=== PATIENT | female | born 1965 | race Caucasian/White ===

== ENCOUNTER 2024-11-19 23:15 | Emergency (ER) | payer BC, SELFPAY ==
[2024-11-19 23:18] VITALS: BP 140/94
[2024-11-19 23:47] LABS: % Basophils 0.5 % (0-2); % Eosinophils 1.9 % (0-6); % Immature Granulocytes 0.3 % (0-0.5); % Lymphocytes 38.7 % (20.5-51.1); % Monocytes 5.9 % (1.7-9.3); % Neutrophils 52.7 % (42.2-75.2); Absolute Eosinophils 0.1 10^3/uL (0-0.7); Absolute Lymphocytes 2.3 10^3/uL (1.2-3.4); Absolute Monocytes 0.4 10^3/uL (0.1-0.6); Absolute Neutrophils 3.1 10^3/uL (1.4-6.5); Hematocrit 35.1 % (37.0-47.0); Hemoglobin 11.9 g/dL (12.0-16.0); Mean Corp Hgb Conc. 33.9 g/dL (33.0-37.0); Mean Corpuscular Hgb 30.1 pg (27.0-31.0); Mean Corpuscular Volume 88.6 fL (81.0-99.0); Mean Platelet Volume 10.5 fL (7.4-10.4); Nucleated Red Blood Cells % 0 %; Platelet Count 200 10^3/uL (130-400); Red Blood Cell Count 3.96 10^6/uL (4.20-5.40); Red Cell Dist. Width 12.8 % (11.5-14.5); White Blood Cell Count 5.9 10^3/uL (4.8-10.8)
[2024-11-20 00:08] LABS: ALT (SGPT) 18 U/L (0-35); AST (SGOT) 20 U/L (14-36); Albumin 4.3 g/dl (3.5-5.0); Alkaline Phosphatase 92 U/L (38-126); Blood Urea Nitrogen 18 mg/dl (7-17); Carbon Dioxide 29 mmol/L (22-30); Chloride 102 mmol/L (98-107); Glucose 117 mg/dl (70-99); Sodium 137 mmol/L (135-145); Total Bilirubin 0.3 mg/dl (0.2-1.3); Total Protein 6.6 g/dl (6.3-8.2); eGFR > 60.00
[2024-11-20 00:44] VITALS: BMI 32.3
--- NOTE | 2024-11-20 00:46 | EDRN ---
Pt says I just don't feel good. I'm unsure if it was indigestion, I couldn't get a deep breath, maybe it was something I ate or a panic attack. It's a weird feeling, I felt it right before you walked in. I feel like I can't take a deep breath,
it's not sob. No sharp pain, a dull burning sensation, I ate a lot of almonds so I don't know if that has anything to do with this.' Pt had dry mouth and nausea earlier, feels abdominal 'discomfort' not pain. Pt burped couple times earlier. Pt
took a Tums which she does not feel helped. No cp, sob, abd pain, vomiting, fever/chills/cough, urinary symptoms, weakness, dizziness. Dinner was [place] with walnuts, banana and blueberries. Earlier pt had tea and sliced almonds.
[2024-11-20 00:56] VITALS: BP 140/95
--- NOTE | 2024-11-20 01:01 | EDRN ---
While talking with pt, she had multiple episodes stating 'There it is, that feeling again.' No change in HR, rhythm or extra beats on monitor during these episodes. Each lasted few seconds and during last one pt felt nauseous and head of bed had
to be raised.
[2024-11-20 01:18] VITALS: BP 130/69
--- NOTE | 2024-11-20 01:21 | EDRN ---
While obtaining more blood and inserting IV, pt had couple more episodes. Pt had burning in her upper abdomen and it went up the middle of her chest into her throat. Pt had nausea briefly. HR 80's NSR, no ectopy. Troponin, lipase and UA sent.
[2024-11-20 01:25] LABS: Urine Albumin Negative (Neg - Trace); Urine Bilirubin Negative (Negative); Urine Character Clear (Clear); Urine Color Yellow; Urine Glucose Negative (Negative); Urine Ketone Negative (Negative); Urine Leukocyte Negative (Negative); Urine Nitrite Negative (Negative); Urine Occult Blood Negative (Negative); Urine Specific Gravity 1.015 (<1.030); Urine Urobilinogen Negative (Neg - 1+); Urine pH 6.5 (5.0-9.0)
[2024-11-20 01:39] LABS: Lipase 217 U/L (23-300)
--- NOTE | 2024-11-20 01:47 | ED.GENMED ---
History of Present Illness
General
Chief Complaint: Abdominal Symptoms
Source: patient
Exam Limitations: none
Time Seen by Provider: 11/20/24 01:25
Nursing documentation reviewed up to this point in time: agreed with
History of Present Illness
History of Present Illness:
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 Several family members with tachycardia syndrome but patient
herself has never suffered tachycardia and has undergone unremarkable cardiac evaluation including stress test, echocardiogram, Holter monitors in the past.
Tonight around 10:30 PM while lying in bed, her dog was lying on her chest/abdomen and she developed nausea, a sense of difficulty catching her breath which she describes as difficulty taking a deep breath and a vague discomfort of her lower chest,
upper abdominal area that radiated to her neck. She denies pain or pressure but symptoms persisted, accompanied with some nausea without vomiting. She got up and walked around, took some Tums and initially no improvement but now admits that
discomfort and symptoms have resolved. She does admit that it seemed to improve but then came back sort of coming and going for a while but has since resolved.
No history of similar episodes in the past. She has not had a cough, no palpitations or a sense that her heart was beating fast but she does admit to feeling somewhat anxious, worried regarding genetic predisposition to ventricular tachycardia.
No recent travel. She denies leg pain or swelling.
She takes no medicines on a daily basis.
Past History
Past History
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 Patient has never had episode of V. tach.)
ED Past Surgical History: Appendectomy and Gynecological ( ovarian cyst)
Social History
Tobacco: Non-smoker
Alcohol: Occasional
Personal:
Living: with family
Employment: Employed
Family History
Family History: Other (Catecholamine induced ventricular tachycardia)
Phy Exam
Physical Exam
Physical Exam:
GENERAL: 59-year-old woman appears her stated age, awake and alert, pleasant, easily communicative and in no acute distress.
EYE: anicteric
NECK: Supple, nontender, no meningismus, no significant adenopathy.
ENT: oral mucosa is moist. No rhinorrhea.
CARDIAC: Regular rate and rhythm. no murmur. No chest wall tenderness.
LUNGS: Clear breath sounds bilaterally, no acute respiratory distress, no wheezes/rales/rhonchi
ABDOMEN: Soft, nondistended, without focal tenderness, no r/g, no cvat. normoactive BS.
NEUROLOGICAL: Alert and oriented x3, no focal neuro deficits. Gait is steady.
SKIN: Warm and dry, normal color, skin intact. No rash.
MUSCULOSKELETAL: No C/C/E. peripheral pulses are full and equal b/l. No palpable tenderness.
PSYCH: Normal and appropriate interaction.
Course
Orders/Labs/Results
Orders:
Orders
11/19/24 23:28
CMP [Comprehensive Metabolic Panel] Urgent
Complete Blood Count/With Diff Urgent
11/20/24 01:10
Urinalysis Reflex To Culture Urgent
Date Specimen was Collected: 11/20/24
Time Specimen was Collected: 01:08
11/20/24 01:16
Lipase Urgent
Troponin I Urgent
11/20/24 01:37
Electrocardiogram (*1) Urgent
Reason for Study: Chest Pain
EKG- Treatment ONCE
11/20/24 02:46
CR Chest - 2 Views Urgent
Comment:
Reason For Exam: SOB
11/20/24 02:47
US Abdomen Complete/Upper Urgent
Comment:
Reason For Exam: epigastric abd pain, nausea
11/20/24 03:52
Pantoprazole [Protonix IV] 40 mg IV NOW STA
Abnormal Lab Results
11/19/24
23:28
RBC 3.96 L 10^6/uL
(4.20-5.40)
Hgb 11.9 L g/dL
(12.0-16.0)
Hct 35.1 L %
(37.0-47.0)
MPV 10.5 H fL
(7.4-10.4)
BUN 18 H mg/dl
(7-17)
Glucose 117 H mg/dl
(70-99)
11/19/24 23:28
11/19/24 23:28
Vital Signs
Initial and Last Documented VS:
Initial Vital Signs
Temp Pulse Resp BP Pulse Ox
98 F 94 18 140/94 98
11/19/24 23:18 11/19/24 23:18 11/19/24 23:18 11/19/24 23:18 11/19/24 23:18
Last Documented Vital Signs
Temp Pulse Resp BP Pulse Ox
98 F 83 15 131/70 93
11/19/24 23:18 11/20/24 02:00 11/20/24 02:00 11/20/24 02:09 11/20/24 02:00
MDM/Problems Addressed
Differential Diagnosis Includes:
Concern for acute GERD, biliary colic, pancreatitis, ACS.
No history of thromboembolism nor risk factors for such.
Will check EKG, labs, troponin.
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
*Radiology
Radiology exam reviewed: preliminary read by ED provider (Chest x-ray is unremarkable) and radiology read reviewed (Abdominal ultrasound is unremarkable. Benign-appearing hepatic cyst. Gallbladder is normal. Common bile duct normal at 5 mm.)
*Pulse Oximetry
Patient hypoxic: no
*EKG
Interpreted by ED Provider?: Yes
Interpretation: normal
Comparison EKG: no comparison EKG present
Rate: normal
Rhythm: sinus
[place]: normal axis
Interval: normal interval
QRS Pattern: normal QRS
Ischemia: no ischemia
*Hardboard Supervisor Interpretation
Rate: normal
Interpretation: normal
Rhythm: sinus
*Critical Care Note
Total Time (30-74mins, 75-104mins- exclusive of procedures): Not Applicable
Update Note
Update Note:
03:50
Pt resting comfortable. she continues with occasional, mild epigastric discomfort.
No SOB.
Labs are WNL. Normal troponin.
CXR (-)
Abd US (-)
I suspect acute GERD r/t snacking throughout the night, lying down and dog lying on her stomach when symptoms began.
Discussed dietary changes
Will treat with short course of protonix
prompt fu with PCP
ED Attending Note
-
Portions of this chart may have been created with voice recognition software.� Occasional wrong word or��sound alike� substitutions may have occurred due to the inherent limitations of voice recognition software.
Discharge Plan
Departure
Patient Disposition: Home (Routine Discharge)
Date of Disposition: 11/20/24
Time of Disposition: 03:57
Patient with high blood pressure during this ER visit?: No
Condition: Good
Discharge Problem:
Acute GERD
Instructions: Acid reflux and GERD in adults
Prescriptions:
New
pantoprazole [Protonix] 40 mg tablet,delayed release (DR/EC)
40 mg PO DAILY Qty: 30 0RF
Referrals:
UNKNOWN - PT DOES,NOT KNOW [Family Provider] - Call in 1-3 days for appt
Interventions
Interventions:
*Risk Screen - Suicide Last Done: 11/19/24 23:18
*General Assessment Last Done: 11/20/24 00:44
*Neglect/Abuse Screening Last Done: 11/19/24 23:18
*ED- Fall Risk Assessment Last Done: 11/20/24 00:44
*ED COVID-19 Vaccine History Last Done: 11/20/24 00:44
SJ-Oerjsm-Bctjihouog Assessment Last Done: 11/20/24 01:00
Discharge Date and Time
Print Language: YORUBA
[2024-11-20 01:50] LABS: Troponin I < 0.012 ng/ml
[2024-11-20 02:09] VITALS: BP 131/70
[2024-11-20 04:30] VITALS: BP 122/72
[2024-11-20] MEDS: PROTONIX IV 40 MG IV (04:33)
== END 2024-11-20 04:49 | disposition home or self-care (01) ==
LOC: EMR 23:15
PROVIDERS: Emergency Medicine; EMERGENCY PHYSICIAN Emergency Medicine
DX: K21.9 Gastro-esophageal reflux disease without esophagitis (principal); I47.20 Ventricular tachycardia, unspecified; Z90.49 Acquired absence of other specified parts of digestive tract
CPT/HCPCS: 99284; 96374; 71046; 76700; 80053; 81003; 83690; 84484; 85025; 93005

== ENCOUNTER 2025-08-11 23:46 | Emergency (ER) | payer BC, SELFPAY ==
[2025-08-11 23:51] VITALS: BP 158/91
--- NOTE | 2025-08-12 01:21 | ED.SKININJ ---
HPI-Injury
General
Chief Complaint: Bite
Source: patient
Exam Limitations: none
Time Seen by Provider: 08/12/25 01:12
Nursing documentation reviewed up to this point in time: agreed with
History of Present Illness-Injury
Is this injury a work related problem?: No
Is pt an associate of [facility]?: No
Initial Injury comments:
Patient to the emergency department for evaluation of dog bite to right index and middle fingers. She states her dogs were fighting at home and she was accidentally bit while trying to separate the dogs. Incident occurred tonight.
Past History
Past History
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 Patient has never had episode of V. tach.)
ED Past Surgical History: Appendectomy and Gynecological ( ovarian cyst)
Social History
Tobacco: Non-smoker
Alcohol: Occasional
Personal:
Living: with family
Employment: Employed
Family History
Family History: Other (Catecholamine induced ventricular tachycardia)
Review of Systems
Review of Systems
Allergies reviewed?: Yes
All Other Systems: ROS reviewed and negative except as documented in HPI and ROS
Constitutional: Reports no symptoms
Musculoskeletal: Reports other (Mild swelling to right index and middle fingers)
Skin: Reports other (Dog bite puncture wound to right index and middle finger)
Neurological: Reports no symptoms
Psychiatric: Reports no symptoms
Skin Exam
Bite
Right Second Finger:
Type: animal (Dog)
Skin has: puncture wounds
Surrounding area around bite has: no evidence of erythema
Distal skin color and temperature: normal-warm & good color
Normal distal neurovascular exam: Yes
Right Middle Finger:
Type: animal (Dog)
Skin has: puncture wounds
Surrounding area around bite has: no evidence of erythema
Distal skin color and temperature: normal-warm & good color
Normal distal neurovascular exam: Yes
Phy Exam
General Physical Exam
General Presentation: well appearing and no apparent distress
General age: appears stated age
General Skin: warm and dry
General Habitus: normal
Musculoskeletal Exam
Musculoskeletal Exam: full ROM, neuro vasc intact and other (Full range of motion to right index and middle finger. No evidence of tendon injury.)
Skin Exam
Skin Exam: normal color, warm/dry, no rash and other (Mild swelling to right index and middle fingers. Puncture wound noted to right index and right middle finger. No erythema no discharge)
Psychiatric Exam
Psychiatric Exam: normal mood/affect
Course
Orders/Labs/Results
Orders:
Orders
08/12/25 00:03
Hand, Right 3 View [CR Hand - Right Min 3 Views] Urgent
Comment:
Reason For Exam: dog bite to right hand 2nd and 3rd fingers
08/12/25 01:18
Amoxicillin 875 mg/Clav 125 mg [Augmentin 875 mg/125 mg] 1 tablet PO NOW STA
Tetanus/Diphth/Acelpertussis [Adacel] 0.5 ml IM .ONCE ONE
08/12/25 01:37
Amoxicillin 875 mg/Clav 125 mg [Augmentin 875 mg/125 mg] 1 tablet .ROUTE .STK-MED ONE
Vital Signs
Initial and Last Documented VS:
Initial Vital Signs
Temp Pulse Resp BP Pulse Ox
98.4 F 84 16 158/91 100
08/11/25 23:51 08/11/25 23:51 08/11/25 23:51 08/11/25 23:51 08/11/25 23:51
Last Documented Vital Signs
Temp Pulse Resp BP Pulse Ox
98.4 F 84 16 158/91 100
08/11/25 23:51 08/11/25 23:51 08/11/25 23:51 08/11/25 23:51 08/12/25 01:25
*Radiology
Radiology exam reviewed: radiology read reviewed
*Pulse Oximetry
SaO2: 100
Oxygen Mode of Delivery: Room air
Patient hypoxic: no
*Critical Care Note
Total Time (30-74mins, 75-104mins- exclusive of procedures): Not Applicable
Update Note
Update Note:
Patient to emergency department for evaluation after sustaining a dog bite to right index and middle finger. She states she was trying to break up a fight between her dogs and she was accidentally bit. She is a puncture wound to her right index
finger and a puncture wound to her right middle finger. Mild amount of swelling is present to this fingers. There is no erythema, no discharge. She has full range of motion, no evidence of tendon injury. Sensation is intact. X-ray reviewed. No
evidence of fracture noted on x-ray. Will place on Augmentin 875 mg twice daily and she will follow-up with her family doctor. She was given instructions on signs and symptoms to return to the emergency department and she is agreeable to this
plan. Tdap was updated in department tonight.
ED Attending Note
-
Portions of this chart may have been created with voice recognition software.� Occasional wrong word or��sound alike� substitutions may have occurred due to the inherent limitations of voice recognition software.
Discharge Plan
Departure
Patient Disposition: Home (Routine Discharge)
Date of Disposition: 08/12/25
Time of Disposition: 01:19
Patient with high blood pressure during this ER visit?: No
Condition: Good
Covid-19: Not Applicable
Discharge Problem:
Dog bite of hand
Instructions: Animal and human bites, Wound Care (DC)
Prescriptions:
New
amoxicillin-pot clavulanate 875-125 mg tablet
1 tab PO BID Qty: 14 0RF
No Action
pantoprazole [Protonix] 40 mg tablet,delayed release (DR/EC)
40 mg PO DAILY Qty: 30 0RF
Referrals:
UNKNOWN - PT DOES,NOT KNOW [Family Provider]
Activity Restrictions/Additional Instructions:
Follow-up with your family doctor. Return to the emergency department immediately for fever/chills, increasing pain/redness/swelling, any discharge from wounds to your hand, or for any further concerns.
Interventions
Interventions:
*Risk Screen - Suicide Last Done: 08/11/25 23:51
*General Assessment Last Done: 08/12/25 01:19
*Neglect/Abuse Screening Last Done: 08/11/25 23:51
*ED COVID-19 Vaccine History Last Done: 08/11/25 23:51
*ED Influenza Vaccine History Last Done: 08/11/25 23:51
[facility] Fall Risk Assessment Tool Last Done: 08/11/25 23:46
ED-Skin Assessment Last Done: 08/12/25 01:17
Discharge Date and Time
Print Language: ARMENIAN
[2025-08-12] MEDS: AUGMENTIN 875 MG/125 MG 1 TABLET PO (01:27)
[2025-08-12] MEDS: ADACEL 0.5 ML IM (01:27)
== END 2025-08-12 01:55 | disposition home or self-care (01) ==
LOC: EMR 23:46
PROVIDERS: EMERGENCY PHYSICIAN Emergency Medicine
DX: S61.230A Puncture wound without foreign body of right index finger without damage to nail, initial encounter (principal); S61.232A Puncture wound without foreign body of right middle finger without damage to nail, initial encounter; W54.0XXA Bitten by dog, initial encounter; Z23 Encounter for immunization
CPT/HCPCS: 90471; 99283; 73130; 90715